=== PATIENT | male | born 1970 | race Hispanic/Latino ===

== ENCOUNTER 2016-10-02 01:38 | Emergency (ER) | payer SELFPAY ==
[2016-10-02 08:14] LABS: BASO % 0.5 % (0.0-2.0); EOS # 0.3 K/uL (0.0-0.7); EOS % 4.3 % (0.0-4.0); HEMATOCRIT 39.5 % (35.0-51.0); LYMPH # 1.4 K/uL (1.0-4.3); LYMPH % 17.4 % (20.0-40.0); MEAN CELL VOLUME 87.3 fl (80.0-94.0); MEAN CORPUSCULAR HEMOGLOBIN 29.5 pg (27.0-31.0); MEAN CORPUSCULAR HGB CONC 33.7 g/dL (33.0-37.0); MONO # 0.8 K/uL (0.0-0.8); MONO % 10.5 % (0.0-10.0); NEUT # 5.3 K/uL (1.8-7.0); NEUT % 67.3 % (50.0-75.0); NRBC % 0.1 % (0.0-0.0); RED CELL DISTRIBUTION WIDTH 13.6 % (11.5-14.5); WHITE BLOOD COUNT 7.8 K/uL (4.8-10.8)
[2016-10-02 09:11] LABS: URINE BILIRUBIN NEGATIVE (NEGATIVE); URINE COLOR YELLOW (YELLOW); URINE GLUCOSE (UA) NEG (Normal)
[2016-10-02 09:12] LABS: URINE BLOOD NEGATIVE (NEGATIVE); URINE KETONE NEGATIVE (NEGATIVE); URINE PROTEIN NEGATIVE (NEGATIVE); URINE UROBILINOGEN 0.2-1.0 mg/dL (0.2-1.0)
[2016-10-02 09:13] LABS: RBC URINE 1 /hpf (0-3); URINE LEUKOCYTE ESTERASE NEG Leu/uL (Negative); WBC URINE 1 /hpf (0-5)
[2016-10-02 09:40] LABS: ALB/GLOB RATIO 1.6 (1.0-2.1); ALCOHOL SERUM < 10 mg/dl (0-10); ALKALINE PHOSPHATASE 81 U/L (38-126); ALT/SGPT 48 U/L (21-72); AST/SGOT 54 U/L (17-59); BILIRUBIN,TOTAL 0.9 mg/dl (0.2-1.3); BLOOD UREA NITROGEN 11 mg/dl (9-20); CALCIUM 9.3 mg/dL (8.4-10.2); CARBON DIOXIDE 28 mmol/L (22-30); CHLORIDE 101 mmol/L (98-107); GFR AFRICAN-AMERICAN > 60; GLUCOSE,RANDOM 68 mg/dL (75-110); POTASSIUM 4.3 MMOL/L (3.6-5.0); SODIUM 138 mmol/l (132-148); TOTAL PROTEIN 7.2 G/DL (6.3-8.2)
== END 2016-10-02 05:15 | disposition home or self-care (01) ==
LOC: H.ER 01:38
DX: F19.10 Other psychoactive substance abuse, uncomplicated (principal); G47.00 Insomnia, unspecified; Z86.59 Personal history of other mental and behavioral disorders
CPT/HCPCS: 80053; 81003; 85025; 99283; G0480

== ENCOUNTER 2018-01-26 18:07 | Emergency (ER) | payer SELFPAY ==
[2018-01-26] MEDS ORDERED: Sodium Chloride 0.9% 1,000 ML IV STA (19:02)
[2018-01-26 19:45] LABS: BASO % 0.2 % (0.0-2.0); EOS # 0.2 K/uL (0.0-0.7); EOS % 1.5 % (0.0-4.0); HEMOGLOBIN 16.1 g/dL (12.0-18.0); LYMPH # 1.3 K/uL (1.0-4.3); LYMPH % 8.1 % (20.0-40.0); MEAN CELL VOLUME 89.1 fl (80.0-94.0); MEAN CORPUSCULAR HEMOGLOBIN 29.5 pg (27.0-31.0); MEAN CORPUSCULAR HGB CONC 33.2 g/dL (33.0-37.0); MEAN PLATELET VOLUME 9.1 fl (7.2-11.7); MONO # 0.9 K/uL (0.0-0.8); MONO % 5.7 % (0.0-10.0); NEUT # 13.4 K/uL (1.8-7.0); NEUT % 84.5 % (50.0-75.0); PLATELET COUNT 255 K/uL (130-400); RBC 5.47 Mil/uL (4.40-5.90); RED CELL DISTRIBUTION WIDTH 13.6 % (11.5-14.5); WHITE BLOOD COUNT 15.9 K/uL (4.8-10.8)
--- NOTE | 2018-01-26 19:49 | ED PDOC ---
HPI: Seizure Time Seen by Provider: 01/26/18 18:48 Chief Complaint (Nursing): Seizure Chief Complaint (Provider): Seizure History Per: Patient, Family History/Exam Limitations: no limitations Recent Seizure Activity Began: Just Before Arrival Number Of Seizures: One Length Of Seizures (Duration): Minutes (about one) Precipitating Factor(s): Recent Change In Medication Or Dose Post-ictal Period: Yes Additional Complaint(s): 47 year old male with a history of anxiety and depression who recently ran out of his 0.5 mg Xanax 5 days ago. Patient was down to taking 1-2 a day. Today, he suddenly had a seizure witnessed by his significant other. She reports it lasted for about a minute. Afterwards, he was very out of it and count even remember where he was or his address. He has been slowly getting better since arrival via ambulance. Patient ran out of medications because he missed his appointment with his PMD due to the snow last week. Now, his PMD is out for 2 months. Currently he denies any headache, focal weakness or pain. He reports occasional twitching for the past two days. PMD: Jasbir Psychiatrist: In [place] Past Medical History Reviewed: Historical Data, Nursing Documentation, Vital Signs Vital Signs: Last Vital Signs Temp 97.9 F 01/26/18 18:10 Pulse 136 H 01/26/18 18:10 Resp 20 01/26/18 18:10 BP 200/100 H 01/26/18 18:10 Pulse Ox 96 01/26/18 18:10 - Medical History PMH: Anxiety, Depression - Family History Family History: States: No Known Family Hx - Social History Current smoker - smoking cessation education provided: No Alcohol: None - Home Medications Home Medications: Ambulatory Orders Medication Instructions Recorded Alprazolam [Xanax] 0.5 mg PO TID PRN #15 tab 01/26/18 - Allergies Allergies/Adverse Reactions: Allergies Allergy/AdvReac Type Severity Reaction Status Date / Time No Known Allergies Allergy Verified 01/26/18 18:10 Review of Systems ROS Statement: Except As Marked, All Systems Reviewed And Found Negative Neurological: Positive for: Seizures Physical Exam - Reviewed Nursing Documentation Reviewed: Yes Vital Signs Reviewed: Yes - Physical Exam Appears: Positive for: No Acute Distress Head Exam: Positive for: ATRAUMATIC, NORMOCEPHALIC Skin: Positive for: Warm, Dry Eye Exam: Positive for: EOMI, PERRL ENT: Positive for: Other (tacky mucous membranes, superficial abrasion RIGHT lateral tongue) Neck: Positive for: Painless ROM, Supple Cardiovascular/Chest: Positive for: Tachycardia, Other (regular rhythm) Respiratory: Positive for: Normal Breath Sounds. Negative for: Respiratory Distress Gastrointestinal/Abdominal: Positive for: Soft. Negative for: Tenderness Back: Positive for: Normal Inspection. Negative for: Decreased ROM Extremity: Positive for: Normal ROM. 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 Negative for: Motor/Sensory Deficits, Facial Droop - Laboratory Results Result Diagrams: 01/26/18 19:36 01/26/18 19:36 - ECG O2 Sat by Pulse Oximetry: 96 (RA) Pulse Ox Interpretation: Normal Medical Decision Making Medical Decision Making: Time: 1900 Initial Impression: Seizure, most likely from benzo withdrawal Differential diagnoses include but are not limited to: Electrolyte abnormalities and dehydration Initial Plan: --EKG --Alcohol serum --CMP --Creatine phosphokinase --Drug screen --Lact acid --Magnesium --Phosphorus --Urine dip --CBC with differentials --Glucose Labs demonstrate leukocytosis, otherwise no significant abnormalities 2200 Pt reports feeling better. Stable for DC with out patient followup. Scribe Attestation: Documented by Kerri Correia, acting as a scribe for Aundrea Mcleod MD Provider Scribe Attestation: All medical record entries made by the Scribe were at my direction and personally dictated by me. I have reviewed the chart and agree that the record accurately reflects my personal performance of the history, physical exam, medical decision making, and the department course for this patient. I have also personally directed, reviewed, and agree with the discharge instructions and disposition. Disposition - Clinical Impression Clinical Impression: Benzodiazepine dependence, Seizure Counseled Patient/Family Regarding: Studies Performed, Diagnosis, Need For Followup, Rx Given - Disposition Referrals: [facility] [Outside] [facility] [Outside] (FOLLOW UP WITH CLINIC WITHIN A WEEK ) Disposition: Routine/Home Disposition Time: 22:00 Condition: IMPROVED Additional Instructions: NO DRIVING OR OPERATING HEAVY MACHINERY UNTIL YOU FOLLOWUP WITH CLINIC. Prescriptions: Alprazolam [Xanax] 0.5 mg PO TID PRN #15 tab PRN Reason: Anxiety Instructions: Seizures, Adult (DC)
[2018-01-26 19:57] LABS: ALB/GLOB RATIO 1.6 (1.0-2.1); ALBUMIN 5.1 g/dL (3.5-5.0); ALT/SGPT 99 U/L (21-72); AST/SGOT 71 U/L (17-59); BLOOD UREA NITROGEN 11 mg/dl (9-20); CALCIUM 9.8 mg/dL (8.4-10.2); GFR NON-AFRICAN AMERICAN > 60
[2018-01-26 20:33] LABS: EOSINOPHIL 2 % (0-7); LYMPHOCYTE 9 % (20-50); MONOCYTE 5 % (0-10); NEUTROPHIL 84 % (42-75); PLATELET ESTIMATE NORMAL (NORMAL); TOTAL CELLS COUNTED 100
[2018-01-26 22:39] LABS: BARBITURATES, UR NEGATIVE (NEGATIVE); BENZODIAZEPINES, UR NEGATIVE (NEGATIVE); OPIATES, UR NEGATIVE (NEGATIVE); PHENCYCLIDINE, UR NEGATIVE (NEGATIVE)
[2018-01-27 01:00] VITALS: BP 158/90; PULSE 94; RESP 18; TEMP 98.4
--- NOTE | 2018-01-27 09:01 | CARD ---
APPROVED REPORT Date of service: 01/26/2018 EKG Measurement Heart [id number] <Conclusion> Sinus tachycardia Otherwise normal ECG
[2018-01-31 16:06] VITALS: O2SAT 96
== END 2018-01-27 00:08 | disposition home or self-care (01) ==
LOC: H.ER 18:07
DX: R56.9 Unspecified convulsions (principal); D72.829 Elevated white blood cell count, unspecified; F13.20 Sedative, hypnotic or anxiolytic dependence, uncomplicated; F32.9 Major depressive disorder, single episode, unspecified; F41.9 Anxiety disorder, unspecified; Z79.899 Other long term (current) drug therapy
CPT/HCPCS: 80053; 82550; 83605; 83735; 84100; 85025; 93005; 99285; G0480; J7030